=== PATIENT | female | born 1940 | race Caucasian/White ===

== ENCOUNTER → 2017-12-08 | Outpatient (CLI) | payer OTHER ==
[~2017-12-08] VITALS: Ht 167.6 cm; Wt 87.5 kg
[~2017-12-08] MED LIST: ALLEGRA ALLERG180 MG PO; ATORVASTATIN CA40 MG PO; BREO ELLIPTA 11 EACH INH; CALCIUM 500 +1 EAC5 PO; CENTRUM SILVER1 EAC4 PO; CRESTOR10 MG PO; EFFEXOR75 MG PO; FISH OIL 1,001000 M2 PO; FLONASE 0.05%50 MCG NASAL; L-LYSINE1000 M1 PO; MOBIC15 MG PO; MUCINEX600 MG PO; NEURONTIN 300M300 M2 PO; OMEPRAZOLE 20 M20 M1 PO; PROAIR HFA8.5 GM INH; VENLAFAXINE HC150 M1 PO; VICODIN 5-5001 EACH PO; VITAMIN B COMP1 EACH PO; VITAMIN D 5050000 I1; VITAMINC500 PO; ZYRTEC10 M2 PO
--- NOTE | ~2017-12-08 | PATH ---
[facility] [address] [place] [address] PATHOLOGY RPT PROCEDURE Name: CARMINACHEIKH M Room #: REG [facility] Martin.#: [id number] Admission: 12/08/17 Date of : 44 Discharge: Report #: [id number] Path Case #: [id number] [facility] Accession Number: [id number] . 01 Material submitted: . PART A: BIOPSY OF DUODENUM R/O SPRUE PART B: BIOPSY OF DISTAL ESOPHAGUS, HX OF REBOLLAR'S . 01 Clinical history: . Pre-Op DX: Hx Rebollar's esophagus, intermittent diarrhea Post-Op DX: Hx Rebollar's . 02 Diagnosis: A. Small bowel mucosa, duodenum rule out sprue: - No diagnostic abnormalities present. - Negative for villous blunting or increase in intraepithelial lymphocytes. . B. 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 - Moderate acute and chronic inflammation. - Negative for dysplasia. - Squamous mucosa with mild esophagitis. LBQ/12/09/2017 . 02 Comment: Part B: This biopsy shows gastric cardia-type mucosa with scattered goblet cells. The diagnosis in this case may be Rebollar's mucosa if this biopsy was taken from the tubular esophagus at least 1 cm above the gastric fold. If the biopsy was taken from the gastric cardia then it shows intestinal metaplasia of the gastric cardia. Please correlate clinically. History of Rebollar's is noted. (IUV/db; 12/09/17) . 02 Electronically signed: . Marilu Silva MD, Pathologist NPI- [id number] . 01 Gross description: . A. Received in formalin labeled "Cheikh Grewal BX duodenum, rule out sprue," are 3 segments of snider soft tissue measuring 0.9 x 0.6 x 0.2 cm in aggregate dimensions and ranging from 0.3 to 0.5 cm in maximum dimension. The specimen is submitted entirely in cassette A1. . B. Received in formalin labeled "[place] [address] PATHOLOGY RPT PROCEDURE Name: CHEIKH GREWAL Room #: REG CLI Eula#: [id number] Admission: 12/08/17 Date of : 44 Discharge: Report #: [id number] Path Case #: [id number] esophagus," are 2 segments of snider soft tissue measuring 0.8 x 0.3 x 0.2 cm in aggregate dimensions and ranging from 0.3 to 0.5 cm in maximum dimension. The specimen is submitted entirely in cassette B1. (TSD; 12/08/2017) TOB/TOB . 02 Pathologist provided ICD-10: K20.9 . 02 CPT . 505114, [id number] Performed at: [address], [place] [id number] MD Dustin Ramesh MD Phone: [phone] Performed at: [address] [id number] MD Marilu Silva MD Phone: [phone]
--- NOTE | ~2017-12-08 | P ---
[facility] [place] [address] [place] [address] PROCEDURE REPORT Name: CARMINACHEIKH Alvarado Room #: REG [facility]#: [id number] Admission: 12/08/17 Attend Phys: Quinton Peña Discharge: Date of : 44 Report #: [id number] THIS REPORT FOR: //name// CC: Quinton Márquez DATE OF SERVICE: 12/08/2017 PROCEDURE PERFORMED: Upper endoscopy with biopsies. HISTORY OF PRESENT ILLNESS: The patient is a 77-year-old female with a history of gastroesophageal reflux disease and Sanchez's esophagus, last upper endoscopy was performed three years ago. She denies any dysphagia. She does report some intermittent diarrhea. She is taking Prilosec on a daily basis, which in general controls her heartburn symptoms. DESCRIPTION OF PROCEDURE: The risks and benefits of the procedure were explained to the patient those risks including but not limited to bleeding, perforation and the risk of sedation. She understood these risks and gave informed consent. Sedation was given using propofol per anesthesia. Next, using a standard Olympus upper endoscope, the scope was placed in the patient's mouth and advanced under direct vision to the esophagus, stomach and into the second portion of the duodenum. The upper and mid esophagus were normal. In the distal esophagus, there was a single island consistent with Sanchez's esophagus. Biopsies were obtained and otherwise negative. Overall, the gastric mucosa was normal. The pylorus was normal and patent. The duodenal bulb, first and second portion were normal. Random biopsies of the second portion of the duodenum were obtained to rule out the possibility of celiac sprue. The scope was then withdrawn and the procedure terminated. The patient tolerated the procedure well. IMPRESSION: 1. Small island of Sanchez's esophagus. 2. Otherwise, normal upper endoscopy. RECOMMENDATIONS: 1. Await biopsy results. 2. Continue daily PPI therapy. Thank you for allowing me to participate in her care. <ELECTRONICALLY SIGNED> By: Quinton Jacobson MD 12/10/17 [phone] Quinton Jacobson MD /nt
== END | disposition home or self-care (01) ==
LOC: GI 08:07
DX: K22.70 Barrett's esophagus without dysplasia (principal); K20.8 Other esophagitis; J43.9 Emphysema, unspecified; E78.5 Hyperlipidemia, unspecified; F32.9 Major depressive disorder, single episode, unspecified; F41.9 Anxiety disorder, unspecified; Z85.828 Personal history of other malignant neoplasm of skin; Z90.49 Acquired absence of other specified parts of digestive tract; Z98.890 Other specified postprocedural states; Z87.891 Personal history of nicotine dependence; Z98.42 Cataract extraction status, left eye; Z79.899 Other long term (current) drug therapy
CPT/HCPCS: 62110; 62900